=== PATIENT | female | born 1980 | race Caucasian/White ===

== ENCOUNTER 2021-02-23 09:36 | Emergency (ER) | payer OTHER ==
[2021-02-23 11:18] LABS: HEMOGLOBIN 12.9 gm/dl (12.3-15.3); RED BLOOD COUNT 4.26 M/UL (4.00-5.10); WHITE BLOOD COUNT 11.9 K/UL (4.5-11.0)
[2021-02-23 11:43] LABS: BUN/CREATININE RATIO 7 (0-10)
[2021-02-23] MEDS ORDERED: FLAGYL500 MG PO (13:38)
[2021-02-23] MEDS ORDERED: CIPRO500 MG PO (13:38)
[2021-02-23] MEDS ORDERED: IBU800 MG PO (13:38)
[2021-02-23] MEDS ORDERED: ZOFRAN ODT 4 MG4 MG PO (13:38)
[2021-02-23] MEDS ORDERED: PEPCID20 MG PO (13:38)
== END 2021-02-23 13:45 | disposition home or self-care (01) ==
LOC: ER1 09:36
PROVIDERS: Nurse Practitioner
DX: K57.32 Diverticulitis of large intestine without perforation or abscess without bleeding (principal); Z90.710 Acquired absence of both cervix and uterus
CPT/HCPCS: 80053; 83605; 83690; 85025; 96374; 96375; 99284; J1885; J2405; Q9967

== ENCOUNTER → 2021-03-15 | Outpatient (CLI) | payer OTHER ==
[~2021-03-15] MED LIST: CIPRO500 MG PO; FLAGYL500 MG PO; IBU800 MG PO; PEPCID20 MG PO; ZOFRAN ODT 4 MG4 MG PO
== END ==
LOC: EXRD 03-09 11:30
DX: E04.9 Nontoxic goiter, unspecified (principal); E04.1 Nontoxic single thyroid nodule
CPT/HCPCS: 76536

== ENCOUNTER → 2022-02-08 | Outpatient (CLI) | payer OTHER | LOC: ECHO 02-03 09:45 | DX: Z82.49 Family history of ischemic heart disease and other diseases of the circulatory system (principal) | CPT/HCPCS: ECHO; 93306 ==